=== PATIENT | female | born 1980 | race Caucasian/White ===

== ENCOUNTER → 2022-11-27 11:20 | Outpatient (BNVA) | payer MEDICAID, SELFPAY | PROVIDERS: Visit Provider Podiatrist Foot & Ankle Surgery | DX: M72.2 Plantar fascial fibromatosis (principal); M21.6X1 Other acquired deformities of right foot; M21.6X2 Other acquired deformities of left foot | CPT/HCPCS: 73630 ==

== ENCOUNTER 2022-11-27 14:15 | Outpatient (CLI) | payer MEDICAID, SELFPAY | END 2022-11-27 14:16 | disposition home or self-care (01) | LOC: SPT 14:16 | PROVIDERS: Visit Provider Podiatrist Foot & Ankle Surgery | DX: Z46.89 Encounter for fitting and adjustment of other specified devices (principal); M72.2 Plantar fascial fibromatosis | CPT/HCPCS: 97760; L4397 ==

== ENCOUNTER → 2025-02-09 08:41 | Outpatient (BNVA) | payer OTHER, SELFPAY | PROVIDERS: PCP Nurse Practitioner Family; Visit Provider Physician Assistant | DX: M17.0 Bilateral primary osteoarthritis of knee (principal); S89.91XA Unspecified injury of right lower leg, initial encounter; W18.40XA Slipping, tripping and stumbling without falling, unspecified, initial encounter | CPT/HCPCS: 73560; 73565 ==

== ENCOUNTER 2025-02-09 10:45 | Outpatient (CLI) | payer OTHER, SELFPAY | END 2025-02-09 10:46 | disposition home or self-care (01) | LOC: SPT 10:46 | PROVIDERS: PCP Nurse Practitioner Family; Visit Provider Physician Assistant | DX: Z46.89 Encounter for fitting and adjustment of other specified devices (principal); M17.11 Unilateral primary osteoarthritis, right knee | CPT/HCPCS: L1851 ==

== ENCOUNTER → 2025-03-23 07:52 | Outpatient (BNVA) | payer OTHER, SELFPAY | PROVIDERS: PCP Nurse Practitioner Family; Visit Provider Physician Assistant | DX: M17.0 Bilateral primary osteoarthritis of knee (principal) | CPT/HCPCS: 73560; 73565 ==

== ENCOUNTER 2025-03-23 08:53 | Outpatient (CLI) | payer OTHER, SELFPAY | END 2025-03-23 08:54 | disposition home or self-care (01) | LOC: SPT 08:56 | PROVIDERS: PCP Nurse Practitioner Family; Visit Provider Physician Assistant | DX: Z46.89 Encounter for fitting and adjustment of other specified devices (principal); M17.12 Unilateral primary osteoarthritis, left knee | CPT/HCPCS: 97760; L1851 ==

== ENCOUNTER 2025-06-20 10:21 | Outpatient (CLI) | payer OTHER, SELFPAY ==
--- NOTE | 2025-06-20 10:45 | CT_ITS ---
WS: [id number] CT LEFT KNEE, NONCONTRAST [facility] TECHNIQUE: Noncontrast CT of the LEFT knee to include the LEFT hip and ankle. CLINICAL INFORMATION: pre operative planning COMPARISON: None. DLP: 942.[address] scans at [facility] use at least one of these dose optimization techniques: automated exposure control; mA and/or kV adjustment per patient size (includes targeted exams where dose is matched to clinical indication); or iterative reconstruction. FINDINGS: Advanced tricompartment arthritis LEFT knee. Hypertrophic patella. Trace suprapatellar fluid. Hypertrophic changes along the joint line. Vascular calcification. Moderate degenerative narrowing both hips. Sigmoid diverticulosis. CT/CT knee LT [place] [id number] IMPRESSION: Images obtained for preoperative purposes.
== END 2025-06-20 10:22 | disposition home or self-care (01) ==
LOC: RAD 10:24
PROVIDERS: PCP Nurse Practitioner Family; Visit Provider Student in an Organized Health Care Education/Training Program
DX: M17.12 Unilateral primary osteoarthritis, left knee (principal); M16.0 Bilateral primary osteoarthritis of hip; M22.8X2 Other disorders of patella, left knee; M25.462 Effusion, left knee; M25.862 Other specified joint disorders, left knee
CPT/HCPCS: 73700

== ENCOUNTER → 2025-07-19 09:15 | Outpatient (BNVA) | payer OTHER, SELFPAY | PROVIDERS: PCP Nurse Practitioner Family; Visit Provider Physician Assistant | DX: Z01.818 Encounter for other preprocedural examination (principal); M17.12 Unilateral primary osteoarthritis, left knee; E11.69 Type 2 diabetes mellitus with other specified complication; Z72.0 Tobacco use; Z68.41 Body mass index [BMI] 40.0-44.9, adult; Z79.4 Long term (current) use of insulin; Z79.899 Other long term (current) drug therapy | CPT/HCPCS: 36415; 80053; 80323; 81001; 83036; 85025 ==